=== PATIENT | male | born 1990 | race Two or more races ===

== ENCOUNTER 2018-03-21 14:00 | Emergency (ER) | payer BC, OTHER ==
[~2018-03-21] VITALS: Ht 172.7 cm; Wt 68.0 kg
[2018-03-21 14:28] VITALS: BP 122/76
== END 2018-03-21 15:21 | disposition home or self-care (01) ==
LOC: ER 14:00
DX: S60.221A Contusion of right hand, initial encounter (principal); S60.211A Contusion of right wrist, initial encounter; W18.39XA Other fall on same level, initial encounter; Y93.89 Activity, other specified; Y92.89 Other specified places as the place of occurrence of the external cause; Y99.8 Other external cause status
CPT/HCPCS: 73110; 73130

== ENCOUNTER 2018-05-06 20:50 | Emergency (ER) | payer BC ==
[~2018-05-06] VITALS: Ht 172.7 cm; Wt 70.3 kg
[2018-05-06 21:00] VITALS: BP 132/79
[2018-05-06] MEDS ORDERED: TETRACAINE HCL 0.5% OPTH(EYE) SOLN 4ML LEFTEYE ONE (22:00)
== END 2018-05-06 22:53 | disposition home or self-care (01) ==
LOC: ER 20:50
DX: S05.02XA Injury of conjunctiva and corneal abrasion without foreign body, left eye, initial encounter (principal); X58.XXXA Exposure to other specified factors, initial encounter; Y93.89 Activity, other specified; Y99.8 Other external cause status; Y92.89 Other specified places as the place of occurrence of the external cause

== ENCOUNTER 2020-01-15 16:10 | Inpatient (IN) | payer BC ==
[~2020-01-15] VITALS: Ht 182.9 cm; Wt 68.6 kg
[2020-01-15] MEDS ORDERED: SODIUM CHLORIDE 0.9% 1,000 ML IV ONE (17:32)
[2020-01-15] MEDS ORDERED: METOCLOPRAMIDE HCL 5MG/ml INJ 2ml VIAL IV ONE (17:45)
[2020-01-15] MEDS ORDERED: HYDROmorphone HCL 2 MG/ML VL IV ONE ×2 (17:45→20:00)
[2020-01-15 17:47] LABS: Basophils # (auto) 0.1 uL; Basophils % (auto) 0.5 % (0.0-2.0); Eosinophils # (auto) 0 uL; Eosinophils % (auto) 0.1 % (0.0-7.0); Hematocrit 45.7 % (41.0-53.0); Hemoglobin 15.4 g/dL (13.5-17.5); Lymphocytes # (auto) 1.3 uL; Lymphocytes % (auto) 5.5 % (10.0-50.0); Mean Corpuscular Hemoglobin 31.5 pg (28.0-32.0); Mean Corpuscular Hgb Conc. 33.6 g/dL (32.0-36.0); Mean Corpuscular Volume 93.8 fL (80.0-100.0); Monocytes # (auto) 1.9 uL; Monocytes % (auto) 8.1 % (0.0-12.0); Neutrophils # (auto) 19.6 uL; Neutrophils % (auto) 85.8 % (37.0-80.0); Platelet Count (auto) 253 10^3/uL (140-450); Red Blood Cells 4.87 10^6/uL (4.5-5.90); Red Cell Distribution Width 13.5 % (11.8-14.3); White Blood Cell 22.8 10^3/uL (4.4-10.8)
[2020-01-15 18:01] LABS: INR 1.05 (0.9-1.15); Partial Thromboplastin Time 23.6 sec (23.64-32.05)
[2020-01-15 18:03] LABS: Calcium 8.3 mg/dL (8.5-10.1); Magnesium 2.2 mg/dL (1.6-2.6); Potassium 3.4 mmol/L (3.5-5.1)
[2020-01-15 18:06] LABS: BUN/Creatinine Ratio 16.4; Bilirubin, Total 0.4 mg/dL (0.2-1.0); Total Protein 7.2 g/dL (6.4-8.2)
[2020-01-15] MEDS ORDERED: LIDOCAINE 2% (LOCAL ANESTH.) PF 5ml SDV ONE (18:13)
[2020-01-15] MEDS ORDERED: NEOMYCIN-BACITRACIN-POLYM UNITDOSE PKG TOP OINT TOP ONE ×2 (18:24→18:30)
[2020-01-15] MEDS ORDERED: LIDOCAINE 2% (LOCAL ANESTH.) PF 5ml SDV IJ ONE (18:30)
[2020-01-15] MEDS ORDERED: cefTRIAXone 1GM/50ML D5W 50 ML IV ONE (18:45)
[2020-01-15] MEDS ORDERED: POTASSIUM EFFERVESENT TAB 25 MEQ PO ONE (18:45)
[2020-01-15] MEDS ORDERED: ONDANSETRON HCL 4 MG/2 ML VIAL ONE (20:00)
[2020-01-15] MEDS ORDERED: ONDANSETRON HCL 4 MG/2 ML VIAL IV ONE (20:00)
[2020-01-15] MEDS ORDERED: ONDANSETRON HCL 4 MG/2 ML VIAL IV PRN (21:00)
[2020-01-15] MEDS ORDERED: ALBUTEROL SULF 2.5 MG/0.5ML(0.5%) NEB SOLN NEB PRN (21:00)
[2020-01-15] MEDS ORDERED: TEMAZEPAM 15 MG CAP PO PRN (21:00)
[2020-01-15] MEDS ORDERED: MORPHINE SULF INJ 2 MG/ML SYRINGE 1ML IV PRN (21:00)
[2020-01-15] MEDS ORDERED: NITROGLYCERIN 0.4 MG SL TAB SL PRN (21:00)
[2020-01-15 21:07] VITALS: BP 118/69
[2020-01-15] MEDS: FAMOTIDINE 20 MG TAB PO SCH (22:14)
[2020-01-15] MEDS: MORPHINE SULF INJ 2 MG/ML SYRINGE 1ML IV PRN (22:44)
[2020-01-16] MEDS: HYDROcodone-ACET 5/325MG TAB PO PRN ×2 (02:56→10:31)
[2020-01-16 05:00] VITALS: BP 119/69
[2020-01-16 05:42] LABS: Basophils # (auto) 0.1 uL; Basophils % (auto) 0.6 % (0.0-2.0); Eosinophils # (auto) 0 uL; Eosinophils % (auto) 0.1 % (0.0-7.0); Hematocrit 43.5 % (41.0-53.0); Hemoglobin 15.1 g/dL (13.5-17.5); Lymphocytes # (auto) 1.3 uL; Lymphocytes % (auto) 12.3 % (10.0-50.0); Mean Corpuscular Hemoglobin 32.3 pg (28.0-32.0); Mean Corpuscular Hgb Conc. 34.7 g/dL (32.0-36.0); Monocytes # (auto) 1.8 uL; Monocytes % (auto) 16.3 % (0.0-12.0); Neutrophils # (auto) 7.7 uL; Neutrophils % (auto) 70.7 % (37.0-80.0); Nucleated Red Blood Cells % 0.1 %; Platelet Count (auto) 203 10^3/uL (140-450); Red Blood Cells 4.68 10^6/uL (4.5-5.90); Red Cell Distribution Width 13.3 % (11.8-14.3); White Blood Cell 10.8 10^3/uL (4.4-10.8)
[2020-01-16 06:14] LABS: BUN/Creatinine Ratio 12.5; Calcium 8.8 mg/dL (8.5-10.1); Potassium 3.7 mmol/L (3.5-5.1)
[2020-01-16] MEDS: MORPHINE SULF INJ 2 MG/ML SYRINGE 1ML IV PRN ×3 (08:27→20:53)
[2020-01-16 09:00] VITALS: BP 122/87
[2020-01-16] MEDS: FAMOTIDINE 20 MG TAB PO SCH ×2 (09:01→21:50)
[2020-01-16] MEDS ORDERED: cefTRIAXone 1GM/50ML D5W 50 ML IV ONE (11:00)
[2020-01-16 13:00] VITALS: BP 123/83
[2020-01-16 17:00] VITALS: BP 133/85
[2020-01-16] MEDS: ACETAMINOPHEN 325 MG TAB PO PRN (17:58)
[2020-01-16 21:25] LABS: Alcohol, Urine < 3.0 mg/dL (0-5); Amphetamine Screen, Urine NEGATIVE (NEGATIVE); Barbiturate Scree,Urine NEGATIVE (NEGATIVE); Benzodiazephine Screen, Urine NEGATIVE (NEGATIVE); Cannabinoid Screen, Urine POSITIVE (NEGATIVE); Cocaine Screen, Urine NEGATIVE (NEGATIVE); Opiate Scree,Urine POSITIVE (NEGATIVE)
[2020-01-16 21:32] LABS: Phencyclidine Screen, Urine NEGATIVE (NEGATIVE)
[2020-01-16 22:00] VITALS: BP 121/69
[2020-01-17] MEDS: HYDROcodone-ACET 5/325MG TAB PO PRN ×3 (02:50→17:38)
[2020-01-17 05:00] VITALS: BP 121/73
[2020-01-17] MEDS: MORPHINE SULF INJ 2 MG/ML SYRINGE 1ML IV PRN ×3 (06:22→20:07)
[2020-01-17 08:27] VITALS: BP 117/75
[2020-01-17] MEDS: cefTRIAXone 1GM/50ML D5W 50 ML IV SCH (08:40)
[2020-01-17] MEDS: NICOTINE 14 MG/24HR TOPICAL PATCH TD SCH (09:56)
[2020-01-17] MEDS: FAMOTIDINE 20 MG TAB PO SCH ×2 (09:59→21:49)
[2020-01-17 12:34] VITALS: BP 115/70
[2020-01-17 16:25] VITALS: BP 122/73
[2020-01-17] MEDS: ACETAMINOPHEN 325 MG TAB PO PRN (21:50)
[2020-01-17 22:00] VITALS: BP 116/70
[2020-01-18 05:35] VITALS: BP 111/68
[2020-01-18] MEDS: MORPHINE SULF INJ 2 MG/ML SYRINGE 1ML IV PRN (06:45)
[2020-01-18 09:00] VITALS: BP 110/72
[2020-01-18] MEDS: NICOTINE 14 MG/24HR TOPICAL PATCH TD SCH (10:00)
[2020-01-18] MEDS: FAMOTIDINE 20 MG TAB PO SCH (10:01)
[2020-01-18] MEDS: cefTRIAXone 1GM/50ML D5W 50 ML IV SCH (10:01)
[2020-01-18] MEDS: HYDROcodone-ACET 5/325MG TAB PO PRN (11:26)
[2020-01-18 12:59] VITALS: BP 110/72
[2020-01-18 13:00] VITALS: BP 113/80
== END 2020-01-18 15:00 | disposition home or self-care (01) | DRG 200 ==
LOC: EDBD 16:10 → ER 16:10 → TELE 16:11 → TELE-WESTW 22:48
PROVIDERS: ADMIT Nurse Practitioner; ATTEND Family Medicine
DX: S27.0XXA Traumatic pneumothorax, initial encounter (principal); S22.32XA Fracture of one rib, left side, initial encounter for closed fracture; S22.20XA Unspecified fracture of sternum, initial encounter for closed fracture; J98.11 Atelectasis; E87.6 Hypokalemia; S43.102A Unspecified dislocation of left acromioclavicular joint, initial encounter; F17.200 Nicotine dependence, unspecified, uncomplicated; Z83.3 Family history of diabetes mellitus; Y93.89 Activity, other specified; Y92.89 Other specified places as the place of occurrence of the external cause; Y99.8 Other external cause status; V86.56XA Driver of dirt bike or motor/cross bike injured in nontraffic accident, initial encounter
CPT/HCPCS: 32551; 36415; 70450; 71045; 71046; 71250; 73010; 73200; 74176; 80048; 80053; 80307; 83735; 85025; 85610; 85730; 93005; 93306; 96361; 96365; 96375; 96376; G0378; J0696; J2001; J2405

== ENCOUNTER → 2020-06-02 | Outpatient (CLI) | payer BC ==
[2020-06-02 11:26] LABS: Basophils # (auto) 0.1 10 ^3/uL (0-0.2); Basophils % (auto) 1.5 % (0.0-2.0); Eosinophils # (auto) 0.1 10 ^3/uL (0-0.8); Eosinophils % (auto) 2.1 % (0.0-7.0); Lymphocytes # (auto) 2.3 10 ^3/uL (0.4-5.4); Lymphocytes % (auto) 34.1 % (10.0-50.0); Mean Corpuscular Hemoglobin 32.3 pg (28.0-32.0); Mean Corpuscular Hgb Conc. 34.1 g/dL (32.0-36.0); Mean Corpuscular Volume 94.7 fL (80.0-100.0); Monocytes # (auto) 0.6 10 ^3/uL (0-1.3); Monocytes % (auto) 9.4 % (0.0-12.0); Neutrophils # (auto) 3.6 10 ^3/uL (1.6-8.6); Neutrophils % (auto) 52.9 % (37.0-80.0); Nucleated Red Blood Cells % 0.1 %; Platelet Count (auto) 254 10^3/uL (140-450); Red Blood Cells 4.96 10^6/uL (4.5-5.90); Red Cell Distribution Width 13.6 % (11.8-14.3); White Blood Cell 6.8 10^3/uL (4.4-10.8)
[2020-06-02 11:43] LABS: INR 1.01 (0.9-1.15); Partial Thromboplastin Time 26.5 sec (23.64-32.05)
[2020-06-02 12:45] LABS: Urine Bacteria NONE SEEN /hpf (None Seen); Urine Blood Negative /uL (Negative); Urine Mucus FEW (None Seen); Urine Specific Gravity 1.016 (1.001-1.035); Urine WBC <1 /hpf (0 - 3)
[2020-06-02 12:59] LABS: Albumin 3.8 g/dL (3.4-5.0); BUN/Creatinine Ratio 15.2; Bilirubin, Total 0.3 mg/dL (0.2-1.0); Calcium 8.7 mg/dL (8.5-10.1); Total Protein 7.3 g/dL (6.4-8.2)
== END | disposition home or self-care (01) ==
LOC: LAB 11:10
PROVIDERS: ATTEND Nurse Practitioner
DX: Z01.818 Encounter for other preprocedural examination (principal)
CPT/HCPCS: 36415; 80053; 81001; 85025; 85610; 85730

== ENCOUNTER 2020-11-14 16:57 | Emergency (ER) | payer BC ==
[~2020-11-14] VITALS: Ht 172.7 cm; Wt 70.3 kg
[2020-11-14] MEDS ORDERED: IBUPROFEN 800 MG TAB PO ONE ×2 (17:51→18:00)
[2020-11-14 20:48] VITALS: BP 118/75
[2020-11-14] MEDS ORDERED: HYDROcodone-ACET 10/325MG TAB PO ONE (21:30)
== END 2020-11-15 01:16 | disposition home or self-care (01) ==
LOC: ER 16:57
DX: S82.141A Displaced bicondylar fracture of right tibia, initial encounter for closed fracture (principal); X58.XXXA Exposure to other specified factors, initial encounter; Y93.89 Activity, other specified; Y92.89 Other specified places as the place of occurrence of the external cause; Y99.8 Other external cause status
CPT/HCPCS: 73562; 73700

== ENCOUNTER 2020-11-15 10:20 | Emergency (ER) | payer BC ==
[~2020-11-15] VITALS: Ht 172.7 cm; Wt 70.3 kg
[2020-11-15 10:54] VITALS: BP 124/85
[2020-11-15] MEDS ORDERED: HYDROcodone-ACET 10/325MG TAB PO ONE (11:30)
== END 2020-11-15 11:44 | disposition home or self-care (01) ==
LOC: ER 10:20
DX: Z76.0 Encounter for issue of repeat prescription (principal)